=== PATIENT | female | born 2000 | race Two or more races ===

== ENCOUNTER 2024-10-02 09:54 | Emergency (ER) | payer OTHER ==
[~2024-10-02] VITALS: Ht 154.9 cm; Wt 70.3 kg
[2024-10-02 11:35] LABS: HEMATOCRIT 40.4 % (36.0-45.00); HEMOGLOBIN 13.6 g/dL (12.0-15.00); MEAN CELL VOLUME 79.1 fL (80.00-100.00); MEAN CORPUSCULAR HEMOGLOBIN 26.5 pg (27.00-32.0); MEAN CORPUSCULAR HGB CONC 33.6 g/dl (32.0-36.0); PLATELET COUNT 323 K/uL (150-450); RED BLOOD COUNT 5.11 M/uL (4.00-6.00); RED CELL DISTRIBUTION WIDTH 13.5 % (11.5-14.5)
[2024-10-02 12:09] LABS: CALCIUM 8.9 mg/dL (8.5-10.1); CREATININE SERUM 0.57 mg/dL (0.55-1.02); GFR 128.21; POTASSIUM 3.79 mEq/L (3.5-5.1)
[2024-10-02 15:23] LABS: PH,URINE 6.5 (5.0-8.0); URINE APPEARANCE Clear; URINE BILIRRUBIN Negative (NEGATIVE); URINE BLOOD Negative; URINE COLOR Yellow; URINE GLUCOSE Negative (NEGATIVE); URINE LEUKOCYTE Trace; URINE NITRATE Negative; URINE PROTEIN Negative (NEGATIVE); URINE UROBILINOGEN 0.2 E.U./dl
[2024-10-02 15:28] LABS: URINE BACTERIA 4653.5 uL (0.0-1933); URINE EPITHELIAL CELLS 42.2 uL (0.0-38.8); URINE RBC 6.6 uL (0.0-20.8); URINE WBC 34.6 uL (0.0-23.2)
[2024-10-02 15:35] LABS: URINE CAST 0.88 uL (0.0-1.40); URINE KETONE 40 (NEGATIVE)
== END 2024-10-02 16:30 | disposition home or self-care (01) ==
LOC: ER 09:54
PROVIDERS: Emergency Medicine
DX: R10.2 Pelvic and perineal pain (principal); Z88.8 Allergy status to other drugs, medicaments and biological substances; N83.292 Other ovarian cyst, left side